=== PATIENT | male | born 2000 ===

== ENCOUNTER 2022-01-17 17:52 | Emergency (ER) | payer BC, OTHER ==
[2022-01-17] MEDS ORDERED: Cyclobenzaprine 10 MG Tab PO ONE (18:38)
[2022-01-17] MEDS ORDERED: Ketorolac 60 MG/2 ML SDV IM ONE (18:38)
== END 2022-01-17 20:22 | disposition home or self-care (01) ==
LOC: JD.ED 17:52
DX: M54.50 Low back pain, unspecified (principal)
CPT/HCPCS: 72100; 96372; 99283; A9270; J1885